=== PATIENT | male | born 1990 | race African-American/Black ===

== ENCOUNTER 2017-11-04 20:36 | Emergency (ER) | payer MEDICAID ==
[~2017-11-04] VITALS: Ht 175.3 cm; Wt 78.0 kg
[~2017-11-04 20:36] MED LIST: ALBU2.5V13 IH; NO MEDS
[2017-11-04] MEDS ORDERED: ONDANSETRON HCL 4MG/2ML VIAL IV STA (21:47)
[2017-11-04] MEDS ORDERED: MORPHINE SULFATE 4 MG/ML CPJ (NOT FOR IM USE) IV STA (21:47)
[2017-11-04 23:21] LABS: BASOPHILS % 0.5 % (0.0-2.0); EOSINOPHILS % 0.6 % (0.0-5.0); HEMATOCRIT. 35.4 % (42.0-52.0); HEMOGLOBIN. 11.8 g/dL (14.0-18.0); LYMPHOCYTES % 21.8 % (20.0-50.0); MEAN CORPUSCULAR HEMOGLOBIN 28.4 pg (28.0-32.0); MEAN CORPUSCULAR VOLUME 84.8 fL (80.0-94.0); MEAN PLATELET VOLUME 8.7 fl (7.4-10.4); NEUTROPHILS % 68.1 % (40.0-76.0); PLATELET 186 x1000/uL (130-400); RED BLOOD CELL COUNT 4.17 mill/uL (4.7-6.1)
[2017-11-04 23:26] LABS: CHLORIDE 107 mEq/L (98-107)
[2017-11-05 01:07] LABS: CLARITY URINE CLEAR (CLEAR); COLOR URINE YELLOW (YELLOW); KETONES URINE NEGATIVE (NEGATIVE); LEUKOCYTE ESTERASE URINE NEGATIVE (NEGATIVE); NITRITE URINE NEGATIVE (NEGATIVE); OCCULT BLOOD URINE NEGATIVE (NEGATIVE); PH URINE 6.5 (4.5-8.0); PROTEIN URINE NEGATIVE (NEGATIVE); SPECIFIC GRAVITY URINE 1.024 (1.005-1.030); UROBILINOGEN URINE 0.2 E.U./dL (0.2-1.0)
[2017-11-05] MEDS ORDERED: CEFTRIAXONE SODIUM 250 MG/VIAL IM ONE (01:45)
[2017-11-05] MEDS ORDERED: DOXYCYCLINE HYCLATE 100MG CAPSULE PO ONE (01:45)
[2017-11-05 02:15] VITALS: BP 135/86
== END 2017-11-05 02:15 | disposition home or self-care (01) ==
LOC: ER 21:18
DX: N45.3 Epididymo-orchitis (principal); N50.812 Left testicular pain; J45.909 Unspecified asthma, uncomplicated; Z98.890 Other specified postprocedural states; Z20.1 Contact with and (suspected) exposure to tuberculosis; F12.10 Cannabis abuse, uncomplicated; Z88.8 Allergy status to other drugs, medicaments and biological substances
CPT/HCPCS: 36415; 76870; 80053; 81003; 85025; 93976; 96372; 96374; 96375; 99285; J0696; J2270; J2405; Z7610

== ENCOUNTER 2018-09-23 00:26 | Emergency (ER) | payer MEDICAID | END 2018-09-23 03:00 | disposition left against medical advice (07) | LOC: ER 00:26 | DX: R51 Headache (principal); Z53.21 Procedure and treatment not carried out due to patient leaving prior to being seen by health care provider ==

== ENCOUNTER 2018-09-23 06:44 | Emergency (ER) | payer MEDICAID ==
[~2018-09-23] VITALS: Ht 175.3 cm; Wt 172.0 kg
[2018-09-23 09:20] VITALS: BP 118/77
== END 2018-09-23 09:21 | disposition home or self-care (01) ==
LOC: ER 06:44
DX: S00.83XA Contusion of other part of head, initial encounter (principal); J45.909 Unspecified asthma, uncomplicated; F15.10 Other stimulant abuse, uncomplicated; X58.XXXA Exposure to other specified factors, initial encounter; Y93.89 Activity, other specified; Y92.89 Other specified places as the place of occurrence of the external cause; Y99.8 Other external cause status; Z88.8 Allergy status to other drugs, medicaments and biological substances
CPT/HCPCS: 70486; 99284

== ENCOUNTER 2018-10-26 07:34 | Emergency (ER) | payer MEDICAID ==
[~2018-10-26] VITALS: Ht 175.3 cm; Wt 77.0 kg
[2018-10-26 08:05] VITALS: BP 115/76
== END 2018-10-26 10:03 | disposition left against medical advice (07) ==
LOC: ER 07:34
DX: H53.8 Other visual disturbances (principal); Z53.21 Procedure and treatment not carried out due to patient leaving prior to being seen by health care provider

== ENCOUNTER 2018-11-05 10:52 | Inpatient (IN) | payer MEDICAID ==
[~2018-11-05] VITALS: Ht 175.3 cm; Wt 82.6 kg
[2018-11-05 12:09] LABS: CLARITY URINE CLEAR (CLEAR); COLOR URINE DARK YELLOW (YELLOW); KETONES URINE TRACE (NEGATIVE); LEUKOCYTE ESTERASE URINE NEGATIVE (NEGATIVE); NITRITE URINE NEGATIVE (NEGATIVE); OCCULT BLOOD URINE 1+ (NEGATIVE); PH URINE 5.5 (4.5-8.0); PROTEIN URINE 1+ (NEGATIVE); SPECIFIC GRAVITY URINE 1.028 (1.005-1.030)
[2018-11-05 12:18] LABS: BASOPHILS % 0.6 % (0.0-2.0); EOSINOPHILS % 3.6 % (0.0-5.0); HEMATOCRIT. 37.1 % (42.0-52.0); HEMOGLOBIN. 12.3 g/dL (14.0-18.0); LYMPHOCYTES % 19.7 % (20.0-50.0); MEAN CORPUSCULAR VOLUME 84.4 fL (80.0-94.0); MEAN PLATELET VOLUME 8.3 fl (7.4-10.4); MONOCYTES % 6.6 % (2.0-8.0); NEUTROPHILS % 69.5 % (40.0-76.0); PLATELET 239 x1000/uL (130-400); RED CELL DISTRIBUTION WIDTH 13.3 % (11.6-14.6)
[2018-11-05 12:25] LABS: CHLORIDE 108 mEq/L (98-107); PROTHROMBIN TIME 10.3 sec (9.6-11.0)
[2018-11-05] MEDS ORDERED: CEFTRIAXONE 1 G PREMIX 50 ML IV ONE (13:00)
[2018-11-05] MEDS ORDERED: SODIUM CHLORIDE 0.9% 1000ML BAG (SEPSIS BOLUS) IV ONE (13:00)
[2018-11-05] MEDS ORDERED: CLONIDINE 0.1MG TABLET PO PRN (14:15)
[2018-11-05] MEDS ORDERED: MAGNESIUM/ALUMINUM HYDROXIDE/SIMETHICONE 30ML UDC PO PRN (14:15)
[2018-11-05] MEDS ORDERED: DIPHENHYDRAMINE 50MG/ML VIAL IV PRN (14:15)
[2018-11-05] MEDS ORDERED: ONDANSETRON HCL 4MG/2ML INJ IV PRN (14:15)
[2018-11-05] MEDS ORDERED: GUAIFENESIN 200MG/10ML SUGAR FREE UDC PO PRN (14:15)
[2018-11-05] MEDS ORDERED: HYDROCODONE/ACETAMINOPHEN 5/325MG TABLET PO PRN (14:15)
[2018-11-05] MEDS ORDERED: ACETAMINOPHEN 325MG TABLET PO PRN (14:15)
[2018-11-05] MEDS ORDERED: IPRATROPIUM/ALBUTEROL 0.5-3(2.5)MG/3ML NEB INH PRN (14:15)
[2018-11-05] MEDS ORDERED: DOCUSATE SODIUM 100MG CAPSULE PO PRN (14:15)
[2018-11-05 14:32] LABS: PHOSPHORUS 2.5 mg/dL (2.5-4.9)
[2018-11-05 15:16] LABS: *AMPHETAMINES SCREEN URINE PRESUMTIVE POSITIVE (NEGATIVE); *BARBITURATES SCREEN URINE NEGATIVE (NEGATIVE); *BENZODIAZEPINES SCREEN URINE NEGATIVE (NEGATIVE); *COCAINE SCREEN URINE NEGATIVE (NEGATIVE); METHADONE URINE SCREEN NEGATIVE (NEGATIVE); PHENCYCLIDINE URINE SCREEN NEGATIVE (NEGATIVE)
[2018-11-05 15:17] LABS: CANNABINOID URINE SCREEN PRESUMTIVE POSITIVE (NEGATIVE)
[2018-11-05 15:18] LABS: OPIATES URINE SCREEN NEGATIVE (NEGATIVE)
[2018-11-05 17:07] LABS: TOTAL IRON BINDING CAPACITY 198 ug/dL (250-450)
[2018-11-05 20:00] VITALS: BP_SYST 112; BP_SYST 120; BP_DIAS 52; BP_DIAS 66
[2018-11-05] MEDS: ENOXAPARIN 40MG/0.4ML SYR SUBCUT SCH (20:00)
[2018-11-06] VITALS: BP 115/50
[2018-11-06 04:00] VITALS: BP 112/47
[2018-11-06 07:16] LABS: CHLORIDE 109 mEq/L (98-107)
[2018-11-06 07:24] LABS: BASOPHILS % 0.6 % (0.0-2.0); EOSINOPHILS % 6.7 % (0.0-5.0); HEMATOCRIT. 35.6 % (42.0-52.0); HEMOGLOBIN. 11.9 g/dL (14.0-18.0); LYMPHOCYTES % 31.4 % (20.0-50.0); MEAN CORPUSCULAR HEMOGLOBIN 28.2 pg (28.0-32.0); MEAN CORPUSCULAR VOLUME 84.1 fL (80.0-94.0); MONOCYTES % 14.4 % (2.0-8.0); NEUTROPHILS % 46.9 % (40.0-76.0); PLATELET 239 x1000/uL (130-400); RED BLOOD CELL COUNT 4.23 mill/uL (4.7-6.1); RED CELL DISTRIBUTION WIDTH 13.4 % (11.6-14.6)
[2018-11-06 07:40] LABS: LDL CHOLESTEROL 55 mg/dL (5-100)
[2018-11-06 07:43] LABS: HDL CHOLESTEROL 34 mg/dL (40-59)
[2018-11-06 08:00] VITALS: BP 124/68
[2018-11-06] MEDS: MUPIROCIN 2% OINT 22GM TOP SCH ×3 (08:54→23:58)
[2018-11-06 12:00] VITALS: BP 121/54
[2018-11-06] MEDS ORDERED: BICT1TAB PO (15:36)
[2018-11-06 16:00] VITALS: BP 111/73
[2018-11-06] MEDS ORDERED: NON FORMULARY PATIENT HOME MED XX SCH (19:30)
[2018-11-06 20:00] VITALS: BP 123/55
[2018-11-06] MEDS: ENOXAPARIN 40MG/0.4ML SYR SUBCUT SCH (20:39)
[2018-11-07] VITALS: BP 130/74
[2018-11-07 04:00] VITALS: BP 113/60
[2018-11-07 07:22] LABS: HEMATOCRIT. 39.2 % (42.0-52.0); HEMOGLOBIN. 13.1 g/dL (14.0-18.0); MEAN CORPUSCULAR HEMOGLOBIN 28.1 pg (28.0-32.0); MEAN CORPUSCULAR VOLUME 84.1 fL (80.0-94.0); MEAN PLATELET VOLUME 8.5 fl (7.4-10.4); PLATELET 256 x1000/uL (130-400); RED BLOOD CELL COUNT 4.66 mill/uL (4.7-6.1); RED CELL DISTRIBUTION WIDTH 13.2 % (11.6-14.6)
[2018-11-07 08:28] LABS: CHLORIDE 108 mEq/L (98-107)
[2018-11-07] MEDS ORDERED: EMTRICITABINE 200MG CAPSULE PO SCH (09:00)
[2018-11-07 09:09] LABS: ABSOLUTE EOSINOPHILS 0.5 x10E3/uL (0.0-0.4); ABSOLUTE LYMPHOCYTES 2.5 x10E3/uL (0.7-3.1); ABSOLUTE MONOCYTES 0.5 x10E3/uL (0.1-0.9); ABSOLUTE NEUTROPHILS 5.3 x10E3/uL (1.4-7.0); BASOPHILS 0 % (Not Estab.); HEMATOCRIT 36.5 % (37.5-51.0); HEMATOLOGY COMMENT Note: (.); HEMOGLOBIN 11.6 g/dL (13.0-17.7); IMMATURE GRANULOCYTES 0 % (Not Estab.); LYMPHOCYTES 28 % (Not Estab.); MEAN CORPUSCULAR HEMOGLOBIN 27.8 pg (26.6-33.0); MEAN CORPUSCULAR HGB CONC. 31.8 g/dL (31.5-35.7); MEAN CORPUSCULAR VOLUME 87 fL (79-97); MONOCYTES 6 % (Not Estab.); NEUTROPHILS 60 % (Not Estab.); PLATELETS 292 x10E3/uL (150-450); RBC 4.18 x10E6/uL (4.14-5.80); WBC 8.8 x10E3/uL (3.4-10.8)
[2018-11-07 10:11] LABS: % CD 4 POS. LYMPHOCYTES 33.1 % (30.8-58.5); % CD 8 POS. LYMPH 38.4 % (12.0-35.5); ABSOLUTE CD 3 1825 /uL (622-2402); ABSOLUTE CD 4 HELPER 828 /uL (359-1519); ABSOLUTE CD 8 SUPPRESSOR 960 /uL (109-897); CD4/CD8 RATIO 0.86 (0.92-3.72)
[2018-11-07 11:15] VITALS: BP 130/73
[2018-11-07 12:00] VITALS: BP 124/49
[2018-11-07 12:38] LABS: PLATELET ESTIMATE NORMAL
[2018-11-10 19:11] LABS: *HIV-1 RNA BY PCR 20450 copies/mL (.)
== END 2018-11-07 12:40 | disposition home or self-care (01) | DRG 385 ==
LOC: ER 10:52 → 6EST 12:47 → EDBEDREQTM 12:50 → EDBEDREQ 12:50 → ENRESERV 16:16
PROVIDERS: ADMIT Internal Medicine; ATTEND Internal Medicine
DX: S80.821A Blister (nonthermal), right lower leg, initial encounter (principal); E43 Unspecified severe protein-calorie malnutrition; B20 Human immunodeficiency virus [HIV] disease; E87.2 Acidosis; S80.822A Blister (nonthermal), left lower leg, initial encounter; D64.9 Anemia, unspecified; F15.90 Other stimulant use, unspecified, uncomplicated; J45.909 Unspecified asthma, uncomplicated; R73.9 Hyperglycemia, unspecified; F17.210 Nicotine dependence, cigarettes, uncomplicated; R21 Rash and other nonspecific skin eruption; X58.XXXA Exposure to other specified factors, initial encounter; Y93.89 Activity, other specified; Z59.0 Homelessness; Z88.8 Allergy status to other drugs, medicaments and biological substances; Z79.899 Other long term (current) drug therapy; Y92.89 Other specified places as the place of occurrence of the external cause; Y99.8 Other external cause status; W64.XXXA Exposure to other animate mechanical forces, initial encounter
CPT/HCPCS: 36415; 80048; 80061; 80305; 82728; 82962; 83036; 83540; 83550; 83605; 83735; 84100; 84443; 86359; 86360; 86592; 87536; 93970; 97162; 97166; 99285; J0696; J1650; J7030

== ENCOUNTER 2020-10-21 07:03 | Inpatient (IN) | payer MEDICAID ==
[~2020-10-21] VITALS: Ht 175.3 cm; Wt 78.0 kg
[~2020-10-21 07:03] MED LIST changes: +BICT1TAB PO
[2020-10-21] MEDS ORDERED: FAMOTIDINE 20MG/2ML VIAL IV STA (07:09)
[2020-10-21] MEDS ORDERED: METOCLOPRAMIDE HCL 10MG/2ML VIAL IV STA (07:09)
[2020-10-21] MEDS ORDERED: SODIUM CHLORIDE 0.9% 1,000 ML IV ONE ×2 (07:15→14:15)
[2020-10-21] MEDS ORDERED: ACETAMINOPHEN 325MG TABLET PO ONE (07:30)
[2020-10-21 07:46] LABS: CHLORIDE 97 mEq/L (98-107); HEMOGLOBIN. 9.1 g/dL (14.0-18.0); INR 1.2; MEAN CORPUSCULAR HEMOGLOBIN 24.1 pg (28.0-32.0); MEAN CORPUSCULAR VOLUME 71.4 fL (80.0-94.0); PLATELET 130 x1000/uL (130-400); PROTHROMBIN TIME 12.9 sec (9.6-11.0); RED BLOOD CELL COUNT 3.78 mill/uL (4.7-6.1); RED CELL DISTRIBUTION WIDTH 19.3 % (11.6-14.6)
[2020-10-21 09:34] LABS: PLATELET ESTIMATE NORMAL
[2020-10-21] MEDS ORDERED: IOHEXOL-300 100 ML BOTTLE ONE (09:57)
[2020-10-21 10:25] LABS: CLARITY URINE CLEAR (CLEAR); COLOR URINE YELLOW (YELLOW); KETONES URINE TRACE (NEGATIVE); LEUKOCYTE ESTERASE URINE NEGATIVE (NEGATIVE); NITRITE URINE NEGATIVE (NEGATIVE); OCCULT BLOOD URINE 3+ (NEGATIVE); PROTEIN URINE 1+ (NEGATIVE); SPECIFIC GRAVITY URINE 1.077 (1.005-1.030)
[2020-10-21 10:36] LABS: *BENZODIAZEPINES SCREEN URINE NEGATIVE (NEGATIVE)
[2020-10-21 10:37] LABS: *COCAINE SCREEN URINE NEGATIVE (NEGATIVE); CANNABINOID URINE SCREEN PRESUMTIVE POSITIVE (NEGATIVE); METHADONE URINE SCREEN NEGATIVE (NEGATIVE); OPIATES URINE SCREEN NEGATIVE (NEGATIVE)
[2020-10-21 10:38] LABS: *AMPHETAMINES SCREEN URINE NEGATIVE (NEGATIVE); *BARBITURATES SCREEN URINE NEGATIVE (NEGATIVE); PHENCYCLIDINE URINE SCREEN NEGATIVE (NEGATIVE)
[2020-10-21] MEDS ORDERED: CEFTRIAXONE 2 G PREMIX 50 ML IV NR (10:45)
[2020-10-21] MEDS ORDERED: VANCOMYCIN 1 G PREMIX 200 ML IV NR (10:45)
[2020-10-21] MEDS ORDERED: CEFTRIAXONE 1,000 MG in DEXTROSE 5% WATER 50 ML IV SCH (11:00)
[2020-10-21 16:50] VITALS: BP 111/56
[2020-10-21 17:13] VITALS: BP 111/56
[2020-10-21] MEDS ORDERED: CLONIDINE 0.1MG TABLET PO PRN (18:00)
[2020-10-21] MEDS ORDERED: ONDANSETRON HCL 4MG/2ML INJ IV PRN (18:00)
[2020-10-21] MEDS ORDERED: MAGNESIUM/ALUMINUM HYDROXIDE/SIMETHICONE 30ML UDC PO PRN (18:00)
[2020-10-21] MEDS ORDERED: SORBITOL 70% SOLN 30ML PO NR (18:00)
[2020-10-21] MEDS ORDERED: HYDROCODONE/ACETAMINOPHEN 5/325MG TABLET PO PRN (18:00)
[2020-10-21] MEDS: METRONIDAZOLE 500 MG PREMIX 100 ML IV SCH (18:14)
[2020-10-21] MEDS: DEXT 5%/0.45% NACL 1000ML 1,000 ML IV SCH (18:19)
[2020-10-21] MEDS ORDERED: ENOXAPARIN 40MG/0.4ML SYR SUBCUT SCH (18:30)
[2020-10-21] MEDS: ACETAMINOPHEN 325MG TABLET PO PRN (18:35)
[2020-10-21 20:00] VITALS: BP 96/48
[2020-10-22] VITALS: BP 130/42
[2020-10-22] MEDS: METRONIDAZOLE 500 MG PREMIX 100 ML IV SCH ×2 (02:41→09:00)
[2020-10-22] MEDS: ACETAMINOPHEN 325MG TABLET PO PRN ×2 (02:50→09:49)
[2020-10-22 03:50] VITALS: BP 104/43
[2020-10-22] MEDS: DEXT 5%/0.45% NACL 1000ML 1,000 ML IV SCH (07:56)
[2020-10-22] MEDS ORDERED: PANTOPRAZOLE SODIUM 40 MG/VIAL IV SCH (09:00)
[2020-10-22 09:50] LABS: HEMATOCRIT. 30.3 % (42.0-52.0); HEMOGLOBIN. 10.4 g/dL (14.0-18.0); MEAN CORPUSCULAR HEMOGLOBIN 24.5 pg (28.0-32.0); MEAN CORPUSCULAR VOLUME 71.4 fL (80.0-94.0); RED BLOOD CELL COUNT 4.24 mill/uL (4.7-6.1); RED CELL DISTRIBUTION WIDTH 19.4 % (11.6-14.6)
[2020-10-22] MEDS ORDERED: CEFTRIAXONE 1,000 MG in DEXTROSE 5% WATER 50 ML IV SCH ×2 (10:00→17:00)
[2020-10-22] MEDS ORDERED: BISACODYL 5MG TABLET PO PRN (10:00)
[2020-10-22] MEDS ORDERED: CEFTRIAXONE 1 G PREMIX 50 ML IV SCH (10:00)
[2020-10-22] MEDS ORDERED: BISACODYL 10MG SUPP PR NR (10:00)
[2020-10-22 10:12] LABS: CHLORIDE 102 mEq/L (98-107)
[2020-10-22 10:20] LABS: PHOSPHORUS 2.8 mg/dL (2.5-4.9)
[2020-10-22 10:46] LABS: TOTAL IRON BINDING CAPACITY 139 ug/dL (250-450)
[2020-10-22] MEDS ORDERED: MINERAL OIL ENEMA 133ML PR NR (11:00)
[2020-10-22 11:14] LABS: VITAMIN B12 SERUM 1697 pg/mL (211-911)
[2020-10-22 11:34] LABS: FOLIC ACID (FOLATE) SERUM > 20.00 ng/mL (>5.38)
[2020-10-22 11:53] LABS: PLATELET 109 x1000/uL (130-400)
[2020-10-22 11:57] LABS: FERRITIN 3671 ng/mL (22-322)
[2020-10-22 11:58] LABS: PLATELET ESTIMATE SLIGHTLY DECREASED
[2020-10-22 12:00] VITALS: BP 111/53
[2020-10-23 09:06] LABS: ABSOLUTE LYMPHOCYTES 1.5 x10E3/uL (0.7-3.1); ABSOLUTE MONOCYTES 1.3 x10E3/uL (0.1-0.9); ABSOLUTE NEUTROPHILS 3.3 x10E3/uL (1.4-7.0); BASOPHILS 0 % (Not Estab.); HEMATOCRIT 30.1 % (37.5-51.0); HEMATOLOGY COMMENT Note: (.); HEMOGLOBIN 10.5 g/dL (13.0-17.7); IMMATURE GRANULOCYTES 1 % (Not Estab.); LYMPHOCYTES 24 % (Not Estab.); MEAN CORPUSCULAR HEMOGLOBIN 23.9 pg (26.6-33.0); MEAN CORPUSCULAR HGB CONC. 34.9 g/dL (31.5-35.7); MEAN CORPUSCULAR VOLUME 68 fL (79-97); MONOCYTES 22 % (Not Estab.); NEUTROPHILS 53 % (Not Estab.); PLATELETS 130 x10E3/uL (150-450); RED CELL DISTRIBUTION WIDTH 16.6 % (11.6-15.4); WBC 6.1 x10E3/uL (3.4-10.8)
[2020-10-24 10:07] LABS: % CD 3 POS. LYMPHOCYTES 54.5 % (57.5-86.2); % CD 8 POS. LYMPH 33.1 % (12.0-35.5); ABSOLUTE CD 3 818 /uL (622-2402); ABSOLUTE CD 4 HELPER 330 /uL (359-1519); ABSOLUTE CD 8 SUPPRESSOR 497 /uL (109-897); CD4/CD8 RATIO 0.66 (0.92-3.72)
== END 2020-10-22 13:20 | disposition left against medical advice (07) | DRG 720 ==
LOC: ER 07:03 → 8WST 13:04 → ENRESERV 15:15
PROVIDERS: ADMIT Internal Medicine; ATTEND Internal Medicine
DX: A41.9 Sepsis, unspecified organism (principal); E44.0 Moderate protein-calorie malnutrition; K56.7 Ileus, unspecified; E87.1 Hypo-osmolality and hyponatremia; J45.909 Unspecified asthma, uncomplicated; K52.9 Noninfective gastroenteritis and colitis, unspecified; Z88.8 Allergy status to other drugs, medicaments and biological substances; Z79.899 Other long term (current) drug therapy; Z68.25 Body mass index [BMI] 25.0-25.9, adult; Z21 Asymptomatic human immunodeficiency virus [HIV] infection status
CPT/HCPCS: 36415; 71045; 74018; 74177; 76700; 80048; 80053; 80076; 80305; 81003; 82607; 82728; 82746; 83540; 83550; 83605; 83735; 84100; 84145; 85025; 85044; 86359; 86360; 93005; 93970; 99291; C9113; J0696; J1650; J2765; J3370; J3490; J7030; J7060; Q9967